=== PATIENT | male | born 2000 | race Caucasian/White ===

== ENCOUNTER 2018-06-23 17:27 | Emergency (ER) | payer OTHER ==
[~2018-06-23] VITALS: Ht 185.4 cm; Wt 70.3 kg
[2018-06-23 18:17] LABS: BASOPHIL % 0.4 % (0-2); PLATELET COUNT 240 x10^3mcL (130-400); RED CELL DISTRIBUTION WIDTH 13.4 % (11.5-14.5)
[2018-06-23 19:18] LABS: AMPHETAMINE QUAL UR NONE DETECTED (See below)
[2018-06-23 19:29] LABS: CALCIUM 8.8 mg/dL (8.5-10.1); CARBON DIOXIDE 26.4 mmol/L (21-32); CHLORIDE SERUM 106 mmol/L (98-107); GFR1 > 60 mL/min; GLUCOSE SERUM 96 mg/dL (74-106); POTASSIUM SERUM 3.8 mmol/L (3.5-5.1); SODIUM SERUM 144 mmol/L (136-145)
[2018-06-23 19:34] LABS: ALBUMIN 4.2 g/dL (3.4-5.0); ALKALINE PHOSPHATASE 86 U/L (46-116); ALT/SGPT 32 U/L (16-63); AST/SGOT 19 U/L (15-37); BILIRUBIN TOTAL 0.2 mg/dL (0.20-1.00)
[2018-06-23 19:35] LABS: TOTAL PROTEIN, SERUM 8.3 g/dL (6.4-8.2)
--- NOTE | 2018-06-24 08:00 | NUR ---
Late entry from technical coordinator- Packet faxed to [facility].
--- NOTE | 2018-06-24 08:11 | NUR ---
Packet faxed to Anne at [facility] for review.
[2018-06-24 09:55] VITALS: BP 100/68
== END 2018-06-24 10:20 | disposition short-term general hospital (02) ==
LOC: ED 17:27
PROVIDERS: Emergency Medicine
DX: S61.011A Laceration without foreign body of right thumb without damage to nail, initial encounter (principal); R45.851 Suicidal ideations; W26.8XXA Contact with other sharp object(s), not elsewhere classified, initial encounter; Y93.89 Activity, other specified; Y92.89 Other specified places as the place of occurrence of the external cause; Y99.8 Other external cause status
CPT/HCPCS: 36415; G0480

== ENCOUNTER 2019-01-11 23:18 | Emergency (ER) | payer OTHER ==
[~2019-01-11] VITALS: Ht 182.9 cm; Wt 77.1 kg
[2019-01-11 23:27] VITALS: Ht 182.9 cm; Wt 77.1 kg
[2019-01-12 00:20] VITALS: BP 154/83
== END 2019-01-12 00:20 | disposition other institution (70) ==
LOC: ED 23:18
DX: Z02.89 Encounter for other administrative examinations (principal)